=== PATIENT | female | born 1995 | race Caucasian/White ===

== ENCOUNTER 2019-12-20 20:28 | Emergency (ER) | payer SELFPAY ==
[2019-12-20 20:58] VITALS: BP 131/91; PULSE 97; RESP 14; TEMP 36.7; O2SAT 98; BMI 28.3
[2019-12-20 21:01] LABS: Basophils # 0.1 10^3/uL (0.0-0.1); Basophils % 0.6 %; Eosinophils # 0.2 10^3/uL (0.0-0.8); Eosinophils % 1.4 %; Hematocrit 42.9 % (37.0-47.0); Lymphocytes % 38.4 %; Mean Corpuscular HGB Conc 32.6 g/dL (30.0-36.0); Mean Corpuscular Hemoglobin 32.4 pg (28.0-34.0); Mean Corpuscular Volume 99.3 fL (81-99); Mean Platelet Volume 10.9 fL (7.4-10.4); Monocytes # 0.5 10^3/uL (0.2-0.9); Monocytes % 4.9 %; Neutrophils # 5.65 10^3/uL (1.8-7.7); Neutrophils % 54.5 %; Nucleated Red Blood Cells % 0 %; Platelet Count 239 10^3/cmm (130-400); Red Blood Count 4.32 10^6/uL (4.1-5.3); Red Cell Distribution Width 12.2 % (12.1-15.1); White Blood Count 10.4 10^3/uL (4.0-10.0)
[2019-12-20 21:23] LABS: Alanine Aminotransferase 20 U/L (0-33); Albumin Level 4.5 g/dL (3.5-5.2); Alkaline Phosphatase 67 IU/L (35-105); Anion Gap 13.7 (5-19); Aspartate Amino Transferase 18 U/L (0-32); Blood Urea Nitrogen 10 mg/dL (6-20); Calcium 8.9 mg/dL (8.5-10.5); Carbon Dioxide 23 mmol/L (22-29); Chloride 105 mmol/L (98-107); Globulin 2.4 g/dL (1.3-4.6); Glomerular Filtration Rate 123.9 mL/min (90-130); Glucose 121 mg/dL (65-115); Lipase 29 U/L (13-60); Osmolality Calculated 283 mOsm/kg (285-295); Potassium 3.7 mmol/L (3.5-5.1); Sodium 138 mmol/L (136-145); Total Bilirubin 0.2 mg/dL (0.15-1.2); Total Protein 6.9 g/dL (6.6-8.7)
[2019-12-20 21:29] LABS: HCG, Serum Qual Negative (Negative)
== END 2019-12-21 01:31 ==
PROVIDERS: Emergency Medicine; Emergency Provider Physician Assistant
DX: Z53.21 Procedure and treatment not carried out due to patient leaving prior to being seen by health care provider (principal)
CPT/HCPCS: 36415; 80053; 83690; 84703; 85025; 99281

== ENCOUNTER 2020-04-12 08:08 | Emergency (ER) | payer OTHER, SELFPAY ==
[2020-04-12 08:18] VITALS: BP 128/76; PULSE 77; RESP 18; TEMP 36.6; O2SAT 99; BMI 29.2
--- NOTE | 2020-04-12 08:35 | W.ED.COVID ---
HPI - COVID General: Chief Complaint: COVID symptoms Stated Complaint: SORE THROAT, MUSCLE ACHES, N/V/D Time Seen by Provider: 04/12/20 08:16 Triage information: Has fever, cough or shortness of breath. Exposure to COVID + person last 14 days History of Present Illness: HPI Narrative: Patient is a 25-year-old female comes to the ED with sore throat, muscle aches nausea vomiting diarrhea. Patient says symptoms started yesterday. 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 She also endorses symptoms of nasal congestion, decreased appetite and cough. She describes the cough as dry and nonproductive. Denies any fever, shortness of breath, dysuria or hematuria. COVID 19 common symptoms: positive non-productive cough, body aches, throat pain and nasal congestion; negative fever(s), chills, productive cough, dyspnea, fatigue, headache(s), nausea, vomiting or diarrhea COVID 19 other sytmptoms: negative chest pain COVID Results: SARS-CoV-2 RNA (RT-PCR) Pending 04/12/20 09:23 04/12/20 Review of Systems Const: Reports: body aches and change in appetite (decrease); Denies: fever(s), chills or fatigue Eyes: Denies: change in vision or eye discomfort ENMT: Reports: throat pain, nasal discharge and nasal congestion; Denies: odynophagia Card: Denies: chest pain, palpitations, edema, swelling of feet/ankles, dyspnea on exertion or orthopnea Resp: Reports: non-productive cough; Denies: dyspnea or productive cough GI: Denies: abdominal pain, nausea, vomiting, diarrhea, constipation or hematochezia : Denies: flank pain, dysuria or hematuria Musc: Denies: neck pain, back pain or extremity swelling Skin/Breast: Denies: rash or new lesions Neuro: Denies: headache(s), numbness in extremities or weakness in extremities [facility] ED PFSH: Medical History section wound seroma, Social History Smoking and tobacco status: current every day smoker cigarettes Years cigarettes smoked: 10 Quit status (tobacco): not considering quitting Second hand smoke exposure: Yes Smoking risk assessment/counseling performed?: No Reason smoking risk assessment not done: other Physical Exam Const: COMMON NORMALS: no acute distress, patient oriented x3 and alert GENERAL APPEARANCE: cooperative and comfortable HENMT: COMMON NORMALS: normocephalic HEAD & SCALP: normocephalic MOUTH: Normal oral and palatal mucosa present THROAT: posterior oropharynx normal, uvula midline and abnormal tonsil bilateral hypertrophy 2+; no erythema and no exudates Eye: COMMON NORMALS: Equal, round and reactive pupils present PUPIL: Yes Equal, round and reactive pupils present Neck/C-Spine: COMMON NORMALS: supple GENERAL: Yes normal visual inspection Lymph: LYMPHATIC: no lymphadenopathy noted (no cervical lymphadenopathy noted.) Resp: COMMON NORMALS: normal respiratory effort, No retractions, No use of accessory muscles and clear to auscultation bilaterally EFFORT & INSPECTION: Yes able to speak in complete sentences, No tachypneic and No respiratory distress AUSCULTATION: clear to auscultation bilaterally, no crackles and no wheezes Cardio: COMMON NORMALS: regular rate, regular rhythm, S1 normal heart sound present, S2 normal heart sound present, No gallops present (Cardio), No clicks present (Cardio), No murmurs present (Cardio) and Peripheral pulses 2+ throughout RATE: regular rate RHYTHM: regular rhythm HEART SOUNDS: S1 normal heart sound present and S2 normal heart sound present PERIPHERAL PULSES: Peripheral pulses 2+ throughout GI: COMMON NORMALS: Normal to inspection, nondistended, normoactive bowel sounds present, Soft to palpation, non-tender and no masses PALPATION: Yes Soft to palpation : COMMON NORMALS: Yes no CVA tenderness BLADDER/KIDNEY EXAM: Yes no CVA tenderness Back/Pelvis: COMMON NORMALS: no CVA tenderness Extremity: COMMON NORMALS: normal to inspection and no pedal edema Neuro: COMMON NORMALS: patient oriented x3 and moves all extremities SENSORIUM/ORIENTATION: Yes alert Skin: GENERAL SKIN EXAM: dry skin Course Vital Signs: Vital signs: Vital Signs Temperature 97.9 F 04/12/20 08:18 Pulse Rate 77 04/12/20 08:18 Respiratory Rate 18 04/12/20 08:18 Blood Pressure 128/76 04/12/20 08:18 Pulse Oximetry 97 04/12/20 09:45 MDM - COVID MDM Narrative Medical decision making narrative: Patient is a 25-year-old female comes to the ED with upper respiratory symptoms, eam, nausea vomiting and diarrhea. 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 Physical exam shows a healthy 25-year-old female in no acute distress. Lungs are clear to all station bilaterally, with no signs of respiratory distress. CBC, CMP and UA were all unremarkable. Chest x-ray showed no acute findings. Influenza and strep were both negative. COVID-19 test pending. hCG negative vitals blood pressure 128/76, pulse 77, respirations 18, temp 97.9, O2 sat 97% on room air. Patient is stable for discharge and told to self quarantine until COVID-19 test results are back. Patient was told results should be back within the next 2 to 3 days and I told her the hospital will call her with results or she can call hospital. She was discharged with some Zofran and given return to ED precautions. Patient understood agree with plan. Lab Data Attestation: I reviewed the patient's lab results. Result diagrams: 04/12/20 09:00 04/12/20 09:00 Labs: Lab Results 04/12/20 04/12/20 04/12/20 Range/Units 09:00 09:00 09:00 WBC 7.5 (4.0-10.0) 10^3/uL RBC 4.12 (4.1-5.3) 10^6/uL Hgb 13.5 (11.5-15.3) g/dL Hct 40.4 (37.0-47.0) % MCV 98.1 (81-99) fL MCH 32.8 (28.0-34.0) pg MCHC 33.4 (30.0-36.0) g/dL RDW 12.2 (12.1-15.1) % Plt Count 196 (130-400) 10^3/cmm MPV 11.3 H (7.4-10.4) fL Neut % (Auto) 57.4 % Lymph % (Auto) 35.4 % Reynolds % (Auto) 5.5 % Eos % (Auto) 1.1 % Baso % (Auto) 0.5 % Neut # (Auto) 4.27 (1.8-7.7) 10^3/uL Lymph # (Auto) 2.6 (0.8-4.8) 10^3/uL Reynolds # (Auto) 0.4 (0.2-0.9) 10^3/uL Eos # (Auto) 0.1 (0.0-0.8) 10^3/uL Baso # (Auto) 0.0 (0.0-0.1) 10^3/uL Nucleated RBC % (auto) 0 % Nucleated RBCs # 0.0 /100WBC Sodium 138 (136-145) mmol/L Potassium 4.0 (3.5-5.1) mmol/L Chloride 106 (98-107) mmol/L Carbon Dioxide 24 (22-29) mmol/L Anion Gap 12.0 (5-19) BUN 8 (6-20) mg/dL Creatinine 0.6 (0.5-0.9) mg/dL GFR Calculation 122.8 (90-130) mL/min Glucose 91 (65-115) mg/dL Calculated Osmolality 284 L (285-295) mOsm/kg Calcium 8.4 L (8.5-10.5) mg/dL Total Bilirubin 0.3 (0.15-1.2) mg/dL AST 12 (0-32) U/L ALT 11 (0-33) U/L Alkaline Phosphatase 59 (35-105) IU/L Total Protein 6.5 L (6.6-8.7) g/dL Albumin 3.9 (3.5-5.2) g/dL Globulin 2.6 (1.3-4.6) g/dL HCG, Qual Negative (Negative) Urine Color (Yellow) Urine Appearance (CLEAR) Urine pH (5-7) Ur Specific [place] (1.005-1.030) Urine Protein (Negative) Urine Glucose (UA) (Normal) Urine Ketones (Negative) Urine Blood (Negative) Urine Nitrate (Negative) Urine Bilirubin (Negative) Urine Urobilinogen (Negative) mg/dL Ur Leukocyte Esterase (Negative) Urine RBC (0-2) /hpf Urine WBC (0-5) /hpf Ur Squamous Epith Cells (0-5) /hpf Amorphous Sediment Urine Bacteria (NONE) /hpf Influenza Type A Ag (Negative) Influenza Type B Ag (Negative) Group A Strep Rapid (Negative) 04/12/20 04/12/20 04/12/20 Range/Units 09:20 09:22 09:25 WBC (4.0-10.0) 10^3/uL RBC (4.1-5.3) 10^6/uL Hgb (11.5-15.3) g/dL Hct (37.0-47.0) % MCV (81-99) fL MCH (28.0-34.0) pg MCHC (30.0-36.0) g/dL RDW (12.1-15.1) % Plt Count (130-400) 10^3/cmm MPV (7.4-10.4) fL Neut % (Auto) % Lymph % (Auto) % Reynolds % (Auto) % Eos % (Auto) % Baso % (Auto) % Neut # (Auto) (1.8-7.7) 10^3/uL Lymph # (Auto) (0.8-4.8) 10^3/uL Reynolds # (Auto) (0.2-0.9) 10^3/uL Eos # (Auto) (0.0-0.8) 10^3/uL Baso # (Auto) (0.0-0.1) 10^3/uL Nucleated RBC % (auto) % Nucleated RBCs # /100WBC Sodium (136-145) mmol/L Potassium (3.5-5.1) mmol/L Chloride (98-107) mmol/L Carbon Dioxide (22-29) mmol/L Anion Gap (5-19) BUN (6-20) mg/dL Creatinine (0.5-0.9) mg/dL GFR Calculation (90-130) mL/min Glucose (65-115) mg/dL Calculated Osmolality (285-295) mOsm/kg Calcium (8.5-10.5) mg/dL Total Bilirubin (0.15-1.2) mg/dL AST (0-32) U/L ALT (0-33) U/L Alkaline Phosphatase (35-105) IU/L Total Protein (6.6-8.7) g/dL Albumin (3.5-5.2) g/dL Globulin (1.3-4.6) g/dL HCG, Qual (Negative) Urine Color Yellow (Yellow) Urine Appearance Clear (CLEAR) Urine pH 7.0 (5-7) Ur Specific [place] 1.005 (1.005-1.030) Urine Protein Neg (Negative) Urine Glucose (UA) Norm (Normal) Urine Ketones Negative (Negative) Urine Blood Trace H (Negative) Urine Nitrate Negative (Negative) Urine Bilirubin Neg (Negative) Urine Urobilinogen Norm (Negative) mg/dL Ur Leukocyte Esterase Negative (Negative) Urine RBC Rare (0-2) /hpf Urine WBC None (0-5) /hpf Ur Squamous Epith Cells 0-4 H (0-5) /hpf Amorphous Sediment Not Reportable Urine Bacteria Trace (NONE) /hpf Influenza Type A Ag Negative (Negative) Influenza Type B Ag Negative (Negative) Group A Strep Rapid Negative (Negative) COVID Results: SARS-CoV-2 RNA (RT-PCR) Pending 04/12/20 09:23 04/12/20 Imaging Data CXR: Attestation: I personally reviewed and interpreted this imaging study as follows: Radiologist's impression: [address] [address] XRay Report Signed Patient: Sigrid Farah Unit #: [id number] : 1995 Age/Sex: 25 / F ADM Date: 04/12/20 Loc: ER Room/Bed: Attending Dr: Ordering Provider/Ordering MD: Parveen Corley Date of Service: 04/12/20 Procedure(s): XR chest 1V portable [id number] Accession Number(s): [id number] Report Number: [id number] WS: [id number] CHEST XRAY TECHNIQUE: Portable chest. CLINICAL INFORMATION: cough COMPARISON: FINDINGS: Heart: Normal cardiac silhouette. Lungs: Hyperinflation. No acute pulmonary infiltrates. No focal pneumonia or pleural fluid. Bones: Normal visualized bony structures. XR/XR chest 1V portable [id number] IMPRESSION: Normal chest Dictated By: Isiah Wolfe MD Signed By: Isiah Wolfe MD Signed Date/Time: 04/12/20926 DD/ 5 Discharge Plan Discharge Patient Disposition: Home Clinical Impression: Viral syndrome, Close exposure to severe acute respiratory syndrome coronavirus 2 (SARS-CoV-2) Condition: Stable Prescriptions: New Zofran 4 mg tablet 4 mg PO Q8H Qty: 20 RF: 0 No Action prazosin 2 mg capsule 2 mg PO .HS Qty: 30 RF: 1 lamotrigine 25 mg (84) -100 mg (14) tablets,dose pack See Rx Instructions PO PER PKG DIR Qty: 98 RF: 0 Discharge Orders: Discharge Order (Routine); Ordered 04/12/20 Ordered By: Parveen Corley Discharge Diet: Advance as tolerated Discharge Activity: Increase activity as tolerated Patient Instructions: Viral Syndrome (ED) Activity Restrictions/Additional Instructions: Follow-up with medical provider as directed in 7-10 days. COVID testing was performed and sent to lab and results will be back in 2 to 3 days. Self quarantine for the next 3 days or up to 12 days pending on COVID testing results. Contact [facility] in 2 to 3 days to get results or [facility] will contact you with results. Take ibuprofen or Tylenol for fevers. Drink plenty of fluids and stay hydrated. Symptom management with [id number] cough and nasal decongestant meds. Return to the ER or your medical provider if condition worsens. Please read and understand discharge instructions. If any questions, please ask. 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
--- NOTE | 2020-04-12 08:56 | XR_ITS ---
WS: [id number] CHEST XRAY TECHNIQUE: Portable chest. CLINICAL INFORMATION: cough COMPARISON: FINDINGS: Heart: Normal cardiac silhouette. Lungs: Hyperinflation. No acute pulmonary infiltrates. No focal pneumonia or pleural fluid. Bones: Normal visualized bony structures. XR/XR chest 1V portable [id number] IMPRESSION: Normal chest
[2020-04-12] MEDS: sodium chloride 0.9% 1,000 ML 999 ML IV (08:58)
[2020-04-12] MEDS: ondansetron 2 mg/ML SDV 2 mL 4 MG IVP (08:58)
[2020-04-12 09:33] LABS: Basophils % 0.5 %; Eosinophils # 0.1 10^3/uL (0.0-0.8); Eosinophils % 1.1 %; Hematocrit 40.4 % (37.0-47.0); Hemoglobin 13.5 g/dL (11.5-15.3); Lymphocytes # 2.6 10^3/uL (0.8-4.8); Lymphocytes % 35.4 %; Mean Corpuscular HGB Conc 33.4 g/dL (30.0-36.0); Mean Corpuscular Hemoglobin 32.8 pg (28.0-34.0); Mean Corpuscular Volume 98.1 fL (81-99); Mean Platelet Volume 11.3 fL (7.4-10.4); Monocytes # 0.4 10^3/uL (0.2-0.9); Monocytes % 5.5 %; Neutrophils # 4.27 10^3/uL (1.8-7.7); Neutrophils % 57.4 %; Nucleated Red Blood Cells % 0 %; Platelet Count 196 10^3/cmm (130-400); Red Blood Count 4.12 10^6/uL (4.1-5.3); Red Cell Distribution Width 12.2 % (12.1-15.1); White Blood Count 7.5 10^3/uL (4.0-10.0)
[2020-04-12 09:45] VITALS: O2SAT 97
[2020-04-12 09:50] LABS: Rapid Strep A Test Negative (Negative)
[2020-04-12 09:53] LABS: Alanine Aminotransferase 11 U/L (0-33); Albumin Level 3.9 g/dL (3.5-5.2); Alkaline Phosphatase 59 IU/L (35-105); Aspartate Amino Transferase 12 U/L (0-32); Blood Urea Nitrogen 8 mg/dL (6-20); Calcium 8.4 mg/dL (8.5-10.5); Carbon Dioxide 24 mmol/L (22-29); Chloride 106 mmol/L (98-107); Globulin 2.6 g/dL (1.3-4.6); Glomerular Filtration Rate 122.8 mL/min (90-130); Glucose 91 mg/dL (65-115); Osmolality Calculated 284 mOsm/kg (285-295); Sodium 138 mmol/L (136-145); Total Bilirubin 0.3 mg/dL (0.15-1.2); Total Protein 6.5 g/dL (6.6-8.7)
[2020-04-12 09:53] LABS: Bilirubin Urine Neg (Negative); Blood Urine Trace (Negative); Glucose Urine UA Norm (Normal); Ketones Urine Negative (Negative); Leukocyte Esterase Urine Negative (Negative); Nitrate Urine Negative (Negative); Protein Urine Neg (Negative); Specific Gravity, Urine 1.005 (1.005-1.030); Urine Appearance Clear (CLEAR); Urine Color Yellow (Yellow); Urobilinogen Urine Norm (Negative)
[2020-04-12 10:02] LABS: HCG, Serum Qual Negative (Negative)
[2020-04-12 10:02] LABS: Influenza A by IFA Negative (Negative); Influenza B by IFA Negative (Negative)
[2020-04-12 10:16] LABS: Add Urine Culture? No; Bacteria Urine TRACE /hpf; RBC Urine RARE /hpf (0-2); Squamous Epithelial Cell Urine 0-4 /hpf (0-5)
[2020-04-12 11:54] VITALS: BP 104/63; PULSE 67; RESP 20; O2SAT 98
[2020-04-13 19:58] LABS: Quest SARS-CoV-2 RNA NOT DETECTED (NOT DETECTED)
--- NOTE | 2020-04-14 09:54 | PC.NURSE ---
Attempted to contact pt about COVID results. Voicemail left for pt to return call.
--- NOTE | 2020-04-14 10:03 | PC.NURSE ---
pt contacted and given the results of her covid test
== END 2020-04-12 11:55 | disposition home or self-care (01) ==
PROVIDERS: Emergency Provider Physician Assistant
DX: B34.9 Viral infection, unspecified (principal); Z20.828 Contact with and (suspected) exposure to other viral communicable diseases; F17.210 Nicotine dependence, cigarettes, uncomplicated
CPT/HCPCS: 12345; 71045; 80053; 81001; 84703; 85025; 87081; 87635; 87804; 87880; 96361; 96374; 96375; 99284; J2405; J7030

== ENCOUNTER 2020-12-05 01:19 | Emergency (ER) | payer SELFPAY ==
[2020-12-05 01:23] VITALS: BP 111/79; PULSE 101; RESP 18; TEMP 36.5; O2SAT 98; BMI 31.1
--- NOTE | 2020-12-05 01:34 | ED_ITS ---
Documented by User: SEA Magallanes 12/05/20 03:19 HPI - Nausea/Vomiting/Diarrhea General: Chief complaint: Nausea/Vomiting/Diarrhea Stated complaint: ab pain, stomach cramp, n/v/d Time Seen by Provider: 12/05/20 01:29 History of Present Illness: HPI Narrative: Patient is a 25-year-old female comes to the ED with abdominal pain, nausea/vomiting and diarrhea. Patient says that tonight before she went to bed she was having some abdominal pain in the upper part of her abdomen. She laid down went to bed and then woke up later tonight with nausea, vomiting and diarrhea. She says she has had multiple episodes of both vomiting and diarrhea since start of symptoms several hours ago. Patient denies any known exposures to anyone sick. She ate at [id number] for dinner tonight but other people in her family ate the same food and did not get sick. Denies any fever, chills, cough, shortness of breath, dysuria or hematuria. Patient has a history of previous but no other abdominal surgeries. Associated nausea: Yes Associated symtoms: Reports nausea; Denies change in vision, chest pain, dysuria, fatigue, headache(s) or palpitations Review of Systems Const: Denies: fever(s), chills or fatigue Eyes: Denies: change in vision or eye discomfort ENMT: Denies: throat pain, odynophagia, nasal discharge or nasal congestion Card: Denies: chest pain, palpitations, edema, swelling of feet/ankles, dyspnea on exertion or orthopnea Resp: Denies: dyspnea, productive cough or non-productive cough GI: Reports: abdominal pain, nausea, vomiting and diarrhea; Denies: constipation or hematochezia : Denies: flank pain, dysuria or hematuria Musc: Denies: neck pain, back pain or extremity swelling Skin/Breast: Denies: rash or new lesions Neuro: Denies: headache(s), numbness in extremities or weakness in extremities [facility] ED PFSH: Medical History (Updated 12/05/20 @ 04:34 by Marcel Wei MD) section wound seroma, Social History Smoking and tobacco status: current every day smoker cigarettes Years cigarettes smoked: 10 Quit status (tobacco): not considering quitting Second hand smoke exposure: Yes Smoking risk assessment/counseling performed?: No Reason smoking risk assessment not done: other Female Reproductive History: Date of last menstrual period: 10/16/20 Physical Exam Narrative: EXAM NARRATIVE: Patient is a 25-year-old female that is actively vomiting when I entered the room. She appears ill and also had to step out and go to bathroom for diarrhea. Const: COMMON NORMALS: patient oriented x3 HENMT: COMMON NORMALS: normocephalic HEAD & SCALP: normocephalic MOUTH: Normal oral and palatal mucosa present THROAT: posterior oropharynx normal and uvula midline Neck/C-Spine: COMMON NORMALS: supple GENERAL: Yes normal visual inspection Resp: COMMON NORMALS: normal respiratory effort, No retractions, No use of accessory muscles and clear to auscultation bilaterally AUSCULTATION: clear to auscultation bilaterally Cardio: COMMON NORMALS: regular rate, regular rhythm, S1 normal heart sound present, S2 normal heart sound present, No gallops present (Cardio), No clicks present (Cardio), No murmurs present (Cardio) and Peripheral pulses 2+ throughout RATE: regular rate RHYTHM: regular rhythm HEART SOUNDS: S1 normal heart sound present and S2 normal heart sound present PERIPHERAL PULSES: Peripheral pulses 2+ throughout GI: COMMON NORMALS: Normal to inspection, nondistended, normoactive bowel sounds present, Soft to palpation and no masses PALPATION: Yes Soft to palpation and Yes Tenderness to palpation present (GI) Details: LUQ : COMMON NORMALS: Yes no CVA tenderness BLADDER/KIDNEY EXAM: Yes no CVA tenderness Back/Pelvis: COMMON NORMALS: no CVA tenderness Extremity: COMMON NORMALS: normal to inspection Neuro: COMMON NORMALS: patient oriented x3 and moves all extremities Skin: GENERAL SKIN EXAM: dry skin Course ED course: Patient care was transferred over to Dr. Wei at 3:[address] Wei about patient case and that I am waiting on CT image findings before discharge. Vital Signs: Vital signs: Vital Signs Temperature 97.7 F 12/05/20 01:23 Pulse Rate 72 12/05/20 03:52 Respiratory Rate 16 12/05/20 03:52 Blood Pressure 142/72 12/05/20 03:52 Pulse Oximetry 99 12/05/20 03:52 MDM - Nausea/Vomiting/Diarrhea Lab Data: Attestation: I reviewed the patient's lab results. Labs: Lab Results 12/05/20 12/05/20 12/05/20 Range/Units 01:55 01:55 01:55 WBC 15.2 H (4.0-10.0) 10^3/ uL RBC 4.86 (4.1-5.3) 10^6/u L Hgb 15.8 H (11.5-15.3) g/dL Hct 47.2 H (37.0-47.0) % MCV 97.1 (81-99) fL MCH 32.5 (28.0-34.0) pg MCHC 33.5 (30.0-36.0) g/dL RDW 12.3 (12.1-15.1) % Plt Count 240 (130-400) 10^3/c mm MPV 11.3 H (7.4-10.4) fL Neut % (Auto) 78.0 % Lymph % (Auto) 14.7 % [place] % (Auto) 5.7 % Eos % (Auto) 0.9 % Baso % (Auto) 0.3 % Neut # (Auto) 11.82 H (1.8-7.7) 10^3/u L Lymph # (Auto) 2.2 (0.8-4.8) 10^3/u L [place] # (Auto) 0.9 (0.2-0.9) 10^3/u L Eos # (Auto) 0.1 (0.0-0.8) 10^3/u L Baso # (Auto) 0.1 (0.0-0.1) 10^3/u L Nucleated RBC % (a uto) 0 % Nucleated RBCs # 0.0 /100WBC Sodium 141 (136-145) mmol/L Potassium 3.7 (3.5-5.1) mmol/L Chloride 106 (98-107) mmol/L Carbon Dioxide 21 L (22-29) mmol/L Anion Gap 17.7 (5-19) BUN 12 (6-20) mg/dL Creatinine 0.7 (0.5-0.9) mg/dL GFR Calculation 102.8 (90-130) mL/min Glucose 106 (65-115) mg/dL Calculated Osmolal ity 292 (285-295) mOsm/k g Calcium 8.8 (8.5-10.5) mg/dL Total Bilirubin 0.4 (0.15-1.2) mg/dL AST 17 (0-32) U/L ALT 15 (0-33) U/L Alkaline Phosphata se 72 (35-105) IU/L Total Protein 7.4 (6.6-8.7) g/dL Albumin 4.5 (3.5-5.2) g/dL Globulin 2.9 (1.3-4.6) g/dL Lipase 30 (13-60) U/L HCG, Qual Negative (Negative) Urine Color (Yellow) Urine Appearance (CLEAR) Urine pH (5-7) Ur Specific Gravit y (1.005-1.030) Urine Protein (Negative) Urine Glucose (UA) (Normal) Urine Ketones (Negative) Urine Blood (Negative) Urine Nitrate (Negative) Urine Bilirubin (Negative) Urine Urobilinogen (Negative) mg/dL Ur Leukocyte Maribell ase (Negative) Urine RBC (0-2) /hpf Urine WBC (0-5) /hpf Ur Squamous Epith Cells (0-5) /hpf Amorphous Sediment Urine Bacteria (NONE) /hpf Urine Mucus /hpf 12/05/20 Range/Units 03:57 WBC (4.0-10.0) 10^3/ uL RBC (4.1-5.3) 10^6/u L Hgb (11.5-15.3) g/dL Hct (37.0-47.0) % MCV (81-99) fL MCH (28.0-34.0) pg MCHC (30.0-36.0) g/dL RDW (12.1-15.1) % Plt Count (130-400) 10^3/c mm MPV (7.4-10.4) fL Neut % (Auto) % Lymph % (Auto) % [place] % (Auto) % Eos % (Auto) % Baso % (Auto) % Neut # (Auto) (1.8-7.7) 10^3/u L Lymph # (Auto) (0.8-4.8) 10^3/u L [place] # (Auto) (0.2-0.9) 10^3/u L Eos # (Auto) (0.0-0.8) 10^3/u L Baso # (Auto) (0.0-0.1) 10^3/u L Nucleated RBC % (a uto) % Nucleated RBCs # /100WBC Sodium (136-145) mmol/L Potassium (3.5-5.1) mmol/L Chloride (98-107) mmol/L Carbon Dioxide (22-29) mmol/L Anion Gap (5-19) BUN (6-20) mg/dL Creatinine (0.5-0.9) mg/dL GFR Calculation (90-130) mL/min Glucose (65-115) mg/dL Calculated Osmolal ity (285-295) mOsm/k g Calcium (8.5-10.5) mg/dL Total Bilirubin (0.15-1.2) mg/dL AST (0-32) U/L ALT (0-33) U/L Alkaline Phosphata se (35-105) IU/L Total Protein (6.6-8.7) g/dL Albumin (3.5-5.2) g/dL Globulin (1.3-4.6) g/dL Lipase (13-60) U/L HCG, Qual (Negative) Urine Color Yellow (Yellow) Urine Appearance Clear (CLEAR) Urine pH 6.5 (5-7) Ur Specific Gravit y 1.005 (1.005-1.030) Urine Protein 1+ H (Negative) Urine Glucose (UA) Norm (Normal) Urine Ketones Negative (Negative) Urine Blood Neg (Negative) Urine Nitrate Negative (Negative) Urine Bilirubin Neg (Negative) Urine Urobilinogen Norm (Negative) mg/dL Ur Leukocyte Maribell ase Negative (Negative) Urine RBC 0-4 H (0-2) /hpf Urine WBC 0-4 H (0-5) /hpf Ur Squamous Epith Cells 0-4 H (0-5) /hpf Amorphous Sediment Not Reportable Urine Bacteria Trace (NONE) /hpf Urine Mucus 1+ /hpf Discharge Plan Discharge Patient Disposition: Home Clinical Impression: Vomiting, Jejunitis Condition: Stable Prescriptions: New ondansetron 4 mg tablet,disintegrating 4 mg PO Q6H PRN (Reason: nausea and vomiting) Qty: 14 RF: 0 No Action clindamycin HCl 300 mg capsule 300 mg PO TID 10 Days Qty: 30 RF: 0 Discharge Orders: Discharge ED (Routine); Ordered 12/05/20 Ordered By: Marcel Wei Referrals: Noah Kingston MD [Physician] - 1-3 days Discharge Diet: Advance as tolerated Discharge Activity: Resume usual activity Patient Instructions: Acute Nausea and Vomiting (ED) Coding Level of Care Code ED Integrated Program Teacher for Chg Fwd Exam Comprehensive Documented by User: Marcel Wei MD 12/05/20 04:47 HPI - Nausea/Vomiting/Diarrhea General: Chief complaint: Nausea/Vomiting/Diarrhea Stated complaint: ab pain, stomach cramp, n/v/d Time Seen by Provider: 12/05/20 01:29 [facility] ED PFSH: Medical History (Updated 12/05/20 @ 04:34 by Marcel Wei MD) section wound seroma, Social History Smoking and tobacco status: current every day smoker cigarettes Years cigarettes smoked: 10 Quit status (tobacco): not considering quitting Second hand smoke exposure: Yes Smoking risk assessment/counseling performed?: No Reason smoking risk assessment not done: other Course Vital Signs: Vital signs: Vital Signs Temperature 97.7 F 12/05/20 01:23 Pulse Rate 72 12/05/20 03:52 Respiratory Rate 16 12/05/20 03:52 Blood Pressure 142/72 12/05/20 03:52 Pulse Oximetry 99 12/05/20 03:52 MDM - Nausea/Vomiting/Diarrhea MDM Narrative: Medical decision making narrative: Patient presents here with vomiting and feels much improved here after Zofran. CT scan showed a possible jejunitis. She is well-appearing here and is stable for discharge. We will have her follow-up with surgery and return if worsening. She understands agrees to plan. Lab Data: Labs: Lab Results 12/05/20 12/05/20 12/05/20 Range/Units 01:55 01:55 01:55 WBC 15.2 H (4.0-10.0) 10^3/ uL RBC 4.86 (4.1-5.3) 10^6/u L Hgb 15.8 H (11.5-15.3) g/dL Hct 47.2 H (37.0-47.0) % MCV 97.1 (81-99) fL MCH 32.5 (28.0-34.0) pg MCHC 33.5 (30.0-36.0) g/dL RDW 12.3 (12.1-15.1) % Plt Count 240 (130-400) 10^3/c mm MPV 11.3 H (7.4-10.4) fL Neut % (Auto) 78.0 % Lymph % (Auto) 14.7 % [place] % (Auto) 5.7 % Eos % (Auto) 0.9 % Baso % (Auto) 0.3 % Neut # (Auto) 11.82 H (1.8-7.7) 10^3/u L Lymph # (Auto) 2.2 (0.8-4.8) 10^3/u L [place] # (Auto) 0.9 (0.2-0.9) 10^3/u L Eos # (Auto) 0.1 (0.0-0.8) 10^3/u L Baso # (Auto) 0.1 (0.0-0.1) 10^3/u L Nucleated RBC % (a uto) 0 % Nucleated RBCs # 0.0 /100WBC Sodium 141 (136-145) mmol/L Potassium 3.7 (3.5-5.1) mmol/L Chloride 106 (98-107) mmol/L Carbon Dioxide 21 L (22-29) mmol/L Anion Gap 17.7 (5-19) BUN 12 (6-20) mg/dL Creatinine 0.7 (0.5-0.9) mg/dL GFR Calculation 102.8 (90-130) mL/min Glucose 106 (65-115) mg/dL Calculated Osmolal ity 292 (285-295) mOsm/k g Calcium 8.8 (8.5-10.5) mg/dL Total Bilirubin 0.4 (0.15-1.2) mg/dL AST 17 (0-32) U/L ALT 15 (0-33) U/L Alkaline Phosphata se 72 (35-105) IU/L Total Protein 7.4 (6.6-8.7) g/dL Albumin 4.5 (3.5-5.2) g/dL Globulin 2.9 (1.3-4.6) g/dL Lipase 30 (13-60) U/L HCG, Qual Negative (Negative) Urine Color (Yellow) Urine Appearance (CLEAR) Urine pH (5-7) Ur Specific Gravit y (1.005-1.030) Urine Protein (Negative) Urine Glucose (UA) (Normal) Urine Ketones (Negative) Urine Blood (Negative) Urine Nitrate (Negative) Urine Bilirubin (Negative) Urine Urobilinogen (Negative) mg/dL Ur Leukocyte Maribell ase (Negative) Urine RBC (0-2) /hpf Urine WBC (0-5) /hpf Ur Squamous Epith Cells (0-5) /hpf Amorphous Sediment Urine Bacteria (NONE) /hpf Urine Mucus /hpf // Range/Units 03:57 WBC (4.0-10.0) 10^3/ uL RBC (4.1-5.3) 10^6/u L Hgb (11.5-15.3) g/dL Hct (37.0-47.0) % MCV (81-99) fL MCH (28.0-34.0) pg MCHC (30.0-36.0) g/dL RDW (12.1-15.1) % Plt Count (130-400) 10^3/c mm MPV (7.4-10.4) fL Neut % (Auto) % Lymph % (Auto) % [place] % (Auto) % Eos % (Auto) % Baso % (Auto) % Neut # (Auto) (1.8-7.7) 10^3/u L Lymph # (Auto) (0.8-4.8) 10^3/u L [place] # (Auto) (0.2-0.9) 10^3/u L Eos # (Auto) (0.0-0.8) 10^3/u L Baso # (Auto) (0.0-0.1) 10^3/u L Nucleated RBC % (a uto) % Nucleated RBCs # /100WBC Sodium (136-145) mmol/L Potassium (3.5-5.1) mmol/L Chloride (98-107) mmol/L Carbon Dioxide (22-29) mmol/L Anion Gap (5-19) BUN (6-20) mg/dL Creatinine (0.5-0.9) mg/dL GFR Calculation (90-130) mL/min Glucose (65-115) mg/dL Calculated Osmolal ity (285-295) mOsm/k g Calcium (8.5-10.5) mg/dL Total Bilirubin (0.15-1.2) mg/dL AST (0-32) U/L ALT (0-33) U/L Alkaline Phosphata se (35-105) IU/L Total Protein (6.6-8.7) g/dL Albumin (3.5-5.2) g/dL Globulin (1.3-4.6) g/dL Lipase (13-60) U/L HCG, Qual (Negative) Urine Color Yellow (Yellow) Urine Appearance Clear (CLEAR) Urine pH 6.5 (5-7) Ur Specific Gravit y 1.005 (1.005-1.030) Urine Protein 1+ H (Negative) Urine Glucose (UA) Norm (Normal) Urine Ketones Negative (Negative) Urine Blood Neg (Negative) Urine Nitrate Negative (Negative) Urine Bilirubin Neg (Negative) Urine Urobilinogen Norm (Negative) mg/dL Ur Leukocyte Maribell ase Negative (Negative) Urine RBC 0-4 H (0-2) /hpf Urine WBC 0-4 H (0-5) /hpf Ur Squamous Epith Cells 0-4 H (0-5) /hpf Amorphous Sediment Not Reportable Urine Bacteria Trace (NONE) /hpf Urine Mucus 1+ /hpf Imaging Data^: CT Abd/Pel: Radiologist's impression: [address] [id number] [address] Scan Report Signed Patient: Sigrid Farah Unit #: [id number] : 1995 Age/Sex: 25 / F ADM Date: 1 Loc: ER Room/Bed: Attending Dr: Ordering Provider/Ordering MD: Parveen Corley Date of Service: 12/05/20 Procedure(s): CT abdomen pelvis w con* [id number] Accession Number(s): [id number] Report Number: [id number] PROCEDURE INFORMATION: Exam: CT Abdomen And Pelvis With Contrast Exam date and time: 12/05/2020 1:41 AM Age: 25 years old Clinical indication: Nausea and vomiting; Abdominal pain; Localized; Right upper quadrant (ruq); Additional info: Upper abdominal pain with n/v/d TECHNIQUE: Imaging protocol: Computed tomography of the abdomen and pelvis with contrast. Radiation optimization: All CT scans at this facility use at least one of these dose optimization techniques: automated exposure control; mA and/or kV adjustment per patient size (includes targeted exams where dose is matched to clinical indication); or iterative reconstruction. Contrast material: OMNI 300; Contrast volume: 95 ml; Contrast route: INTRAVENOUS (IV); COMPARISON: [facility] [id number] 04/15/2018 1:33 PM RADIATION DOSE METRICS: Total DLP (mGy-cm): 1481.27 FINDINGS: Liver: Normal. No mass. Gallbladder and bile ducts: Normal. No calcified stones. No ductal dilation. Pancreas: Normal. No ductal dilation. Spleen: Normal. No splenomegaly. Adrenal glands: Normal. No mass. Kidneys and ureters: Normal. No hydronephrosis. Stomach and bowel: Jejunal bowel wall thickening consistent with jejunitis. Appendix: Normal appendix. Intraperitoneal space: Unremarkable. No free air. No significant fluid collection. Vasculature: Unremarkable. No abdominal aortic aneurysm. Lymph nodes: Unremarkable. No enlarged lymph nodes. Urinary bladder: Unremarkable as visualized. Reproductive: Unremarkable as visualized. Bones/joints: Unremarkable. No acute fracture. Soft tissues: Unremarkable. CT/CT abdomen pelvis w con* [id number] IMPRESSION: Jejunal bowel wall thickening consistent with jejunitis. Discharge Plan Discharge Patient Disposition: Home Clinical Impression: Vomiting, Jejunitis Condition: Stable Prescriptions: New ondansetron 4 mg tablet,disintegrating 4 mg PO Q6H PRN (Reason: nausea and vomiting) Qty: 14 RF: 0 No Action clindamycin HCl 300 mg capsule 300 mg PO TID 10 Days Qty: 30 RF: 0 Discharge Orders: Discharge ED (Routine); Ordered 12/05/20 Ordered By: Marcel Wei Referrals: Noah Kingston MD [Physician] - 1-3 days Discharge Diet: Advance as tolerated Discharge Activity: Resume usual activity Patient Instructions: Acute Nausea and Vomiting (ED) Coding Level of Care Code ED Integrated Program Teacher for Kinjal Fwd Exam Comprehensive
--- NOTE | 2020-12-05 01:41 | CTR_ITS ---
PROCEDURE INFORMATION: Exam: CT Abdomen And Pelvis With Contrast Exam date and time: 12/05/2020 1:41 AM Age: 25 years old Clinical indication: Nausea and vomiting; Abdominal pain; Localized; Right upper quadrant (ruq); Additional info: Upper abdominal pain with n/v/d TECHNIQUE: Imaging protocol: Computed tomography of the abdomen and pelvis with contrast. Radiation optimization: All CT scans at this facility use at least one of these dose optimization techniques: automated exposure control; mA and/or kV adjustment per patient size (includes targeted exams where dose is matched to clinical indication); or iterative reconstruction. Contrast material: OMNI 300; Contrast volume: 95 ml; Contrast route: INTRAVENOUS (IV); COMPARISON: [facility] [id number] 04/15/2018 1:33 PM RADIATION DOSE METRICS: Total DLP (mGy-cm): 1481.27 FINDINGS: Liver: Normal. No mass. Gallbladder and bile ducts: Normal. No calcified stones. No ductal dilation. Pancreas: Normal. No ductal dilation. Spleen: Normal. No splenomegaly. Adrenal glands: Normal. No mass. Kidneys and ureters: Normal. No hydronephrosis. Stomach and bowel: Jejunal bowel wall thickening consistent with jejunitis. Appendix: Normal appendix. Intraperitoneal space: Unremarkable. No free air. No significant fluid collection. Vasculature: Unremarkable. No abdominal aortic aneurysm. Lymph nodes: Unremarkable. No enlarged lymph nodes. Urinary bladder: Unremarkable as visualized. Reproductive: Unremarkable as visualized. Bones/joints: Unremarkable. No acute fracture. Soft tissues: Unremarkable. CT/CT abdomen pelvis w con* [id number] IMPRESSION: Jejunal bowel wall thickening consistent with jejunitis. Radiation Dose CTDIVOL = (mGy): DLP = 1481.27 (mGy-cm)
[2020-12-05] MEDS: sodium chloride 0.9% 1,000 ML 999 ML IV (02:02)
[2020-12-05] MEDS: metoclopramide 5 mg/mL SDV 2 mL 10 MG IVP (02:03)
[2020-12-05 02:05] VITALS: BP 126/86; PULSE 89; RESP 16; O2SAT 98
[2020-12-05 02:10] LABS: Basophils # 0.1 10^3/uL (0.0-0.1); Basophils % 0.3 %; Eosinophils # 0.1 10^3/uL (0.0-0.8); Eosinophils % 0.9 %; Hematocrit 47.2 % (37.0-47.0); Hemoglobin 15.8 g/dL (11.5-15.3); Lymphocytes # 2.2 10^3/uL (0.8-4.8); Lymphocytes % 14.7 %; Mean Corpuscular HGB Conc 33.5 g/dL (30.0-36.0); Mean Corpuscular Hemoglobin 32.5 pg (28.0-34.0); Mean Corpuscular Volume 97.1 fL (81-99); Mean Platelet Volume 11.3 fL (7.4-10.4); Monocytes # 0.9 10^3/uL (0.2-0.9); Monocytes % 5.7 %; Neutrophils # 11.82 10^3/uL (1.8-7.7); Nucleated Red Blood Cells % 0 %; Platelet Count 240 10^3/cmm (130-400); Red Blood Count 4.86 10^6/uL (4.1-5.3); Red Cell Distribution Width 12.3 % (12.1-15.1); White Blood Count 15.2 10^3/uL (4.0-10.0)
[2020-12-05 02:23] LABS: Alanine Aminotransferase 15 U/L (0-33); Albumin Level 4.5 g/dL (3.5-5.2); Alkaline Phosphatase 72 IU/L (35-105); Anion Gap 17.7 (5-19); Aspartate Amino Transferase 17 U/L (0-32); Blood Urea Nitrogen 12 mg/dL (6-20); Calcium 8.8 mg/dL (8.5-10.5); Carbon Dioxide 21 mmol/L (22-29); Chloride 106 mmol/L (98-107); Globulin 2.9 g/dL (1.3-4.6); Glomerular Filtration Rate 102.8 mL/min (90-130); Glucose 106 mg/dL (65-115); Lipase 30 U/L (13-60); Osmolality Calculated 292 mOsm/kg (285-295); Potassium 3.7 mmol/L (3.5-5.1); Sodium 141 mmol/L (136-145); Total Bilirubin 0.4 mg/dL (0.15-1.2); Total Protein 7.4 g/dL (6.6-8.7)
[2020-12-05 02:41] LABS: HCG, Serum Qual Negative (Negative)
[2020-12-05] MEDS: iohexol 300 mg/mL 100 mL Btl IV (03:10)
[2020-12-05 03:52] VITALS: BP 142/72; PULSE 72; RESP 16; O2SAT 99
[2020-12-05 04:13] LABS: Add Urine Microscopic? YES; Bacteria Urine TRACE /hpf; Bilirubin Urine Neg (Negative); Blood Urine Neg (Negative); Glucose Urine UA Norm (Normal); Ketones Urine Negative (Negative); Leukocyte Esterase Urine Negative (Negative); Mucus Urine 1+ /hpf; Nitrate Urine Negative (Negative); Protein Urine 1+ (Negative); RBC Urine 0-4 /hpf (0-2); Specific Gravity, Urine 1.005 (1.005-1.030); Squamous Epithelial Cell Urine 0-4 /hpf (0-5); Urine Appearance Clear (CLEAR); Urine Color Yellow (Yellow); Urobilinogen Urine Norm (Negative); WBC Urine 0-4 /hpf (0-5); pH Urine 6.5 (5-7)
[2020-12-05 04:56] VITALS: BP 117/84; PULSE 95; RESP 18; O2SAT 99
--- NOTE | 2020-12-05 08:10 | PC.SOCIAL ---
Email sent to [facility] for referral by Dr Wei to Thee Armas: Brennen.
--- NOTE | 2021-01-04 06:46 | DCPLANNER ---
Patient had a follow up appointment scheduled for 12.22.[address] Kingston at general surgery - patient did attend appointment.
== END 2020-12-05 05:01 | disposition home or self-care (01) ==
PROVIDERS: Physician Assistant; Emergency Provider Emergency Medicine
DX: K52.9 Noninfective gastroenteritis and colitis, unspecified (principal); F17.210 Nicotine dependence, cigarettes, uncomplicated
CPT/HCPCS: 74177; 80053; 81001; 83690; 84703; 85025; 96361; 96374; 99284; J2765; J7030; Q9967

== ENCOUNTER 2021-01-16 07:32 | Outpatient (CLI) | payer SELFPAY ==
--- NOTE | 2021-01-16 08:00 | NM_ITS ---
WS: [id number] NUCLEAR MEDICINE HIDA SCAN CLINICAL INFORMATION: R10.11 - Right upper quadrant pain TECHNIQUE: Following intravenous administration of 4.0 mCi of technetium 99m mebrofenin, images of th e abdomen were obtained over the course of 60 minutes. Next, gallbladder ejection fraction was determ ined by obtaining preprandial and one-hour postprandial images of the gallbladder following oral ramez stion of Ensure. COMPARISON: None. FINDINGS: Normal hepatic uptake at 5 minutes. Gallbladder is visualized by 10 to 15 minutes. No evidence of acu te cholecystitis. Normal common bile duct and small bowel activity. No evidence of choledocholithiasi s. Gallbladder ejection fraction 91% within normal limits. No evidence of chronic cholecystitis. NM/NM hepatobiliary w phar* [id number] IMPRESSION: 1. No evidence of acute or chronic cholecystitis. 2. Normal gallbladder ejection fraction 91% within normal limits.
== END 2021-01-16 07:33 | disposition home or self-care (01) ==
LOC: NM 07:34
PROVIDERS: Visit Provider Surgery
DX: R10.11 Right upper quadrant pain (principal)
CPT/HCPCS: 78227; A9537

== ENCOUNTER 2021-07-17 10:31 | Emergency (ER) | payer BC, SELFPAY ==
[2021-07-17 10:59] VITALS: BP 122/87; PULSE 86; RESP 19; TEMP 36.9; O2SAT 97; BMI 32.0
[2021-07-17 12:27] LABS: Basophils % 0.5 %; Eosinophils # 0.1 10^3/uL (0.0-0.8); Eosinophils % 1.6 %; Hematocrit 42.4 % (37.0-47.0); Hemoglobin 14.2 g/dL (11.5-15.3); Lymphocytes # 2.4 10^3/uL (0.8-4.8); Lymphocytes % 29.2 %; Mean Corpuscular HGB Conc 33.5 g/dL (30.0-36.0); Mean Corpuscular Hemoglobin 32.9 pg (28.0-34.0); Mean Corpuscular Volume 98.4 fl (81-99); Mean Platelet Volume 10.7 fL (7.4-10.4); Monocytes # 0.5 10^3/uL (0.2-0.9); Monocytes % 6.4 %; Neutrophils # 5.04 10^3/uL (1.8-7.7); Neutrophils % 62.2 %; Nucleated Red Blood Cells % 0 %; Platelet Count 231 10^3/cmm (130-400); Red Blood Count 4.31 10^6/uL (4.1-5.3); Red Cell Distribution Width 12.6 % (12.1-15.1); White Blood Count 8.1 10^3/uL (4.0-10.0)
[2021-07-17 12:49] LABS: Alanine Aminotransferase 14 U/L (0-33); Albumin Level 4.5 g/dL (3.5-5.2); Alkaline Phosphatase 71 IU/L (35-105); Anion Gap 14.8 (5-19); Aspartate Amino Transferase 23 U/L (0-32); Blood Urea Nitrogen 8 mg/dL (6-20); Calcium 8.6 mg/dL (8.5-10.5); Carbon Dioxide 24 mmol/L (22-29); Chloride 103 mmol/L (98-107); Globulin 2.7 g/dL (1.3-4.6); Glomerular Filtration Rate 194.5 mL/min (90-130); Glucose 86 mg/dL (65-115); Lipase 22 U/L (13-60); Osmolality Calculated 284 mOsm/kg (285-295); Potassium 3.8 mmol/L (3.5-5.1); Sodium 138 mmol/L (136-145); Total Bilirubin 0.3 mg/dL (0.15-1.2); Total Protein 7.2 g/dL (6.6-8.7)
[2021-07-17 12:57] LABS: HCG, Serum Qual Negative (Negative)
--- NOTE | 2021-07-17 17:57 | CTR_ITS ---
PROCEDURE INFORMATION: Exam: CT Abdomen And Pelvis With Contrast Exam date and time: 07/17/2021 5:57 PM Age: 26 years old Clinical indication: Prior surgery; Surgery date: 6+ months; Surgery type: ; Patient HX: General abdominal pain x 2 days; Additional info: Abd pain TECHNIQUE: Imaging protocol: Computed tomography of the abdomen and pelvis with contrast. Radiation optimization: All CT scans at this facility use at least one of these dose optimization techniques: automated exposure control; mA and/or kV adjustment per patient size (includes targeted exams where dose is matched to clinical indication); or iterative reconstruction. Contrast material: OMNI 300; Contrast volume: 95 ml; Contrast route: INTRAVENOUS (IV); COMPARISON: CT abdomen pelvis w con* [id number] 12/05/2020 3:06 AM RADIATION DOSE METRICS: Total DLP (mGy-cm): 1550.52 FINDINGS: Liver: Normal. No mass. Gallbladder and bile ducts: Normal. No calcified stones. No ductal dilation. Pancreas: Normal. No ductal dilation. Spleen: Normal. No splenomegaly. Adrenal glands: Normal. No mass. Kidneys and ureters: Normal. No hydronephrosis. Stomach and bowel: Mild wall thickening is seen in several loops of small bowel in the lower abdomen. No intestinal obstruction. Appendix: Normal. Intraperitoneal space: Unremarkable. No free air. No significant fluid collection. Vasculature: Unremarkable. No abdominal aortic aneurysm. Lymph nodes: Unremarkable. No enlarged lymph nodes. Urinary bladder: Unremarkable as visualized. Reproductive: The uterus and ovaries appear normal. Bones/joints: Unremarkable. No acute fracture. Soft tissues: Unremarkable. CT/CT abdomen pelvis w con* [id number] IMPRESSION: Mild enteritis. No intestinal obstruction.
[2021-07-17] MEDS: iohexol 300 mg/mL 100 mL Btl IV (18:11)
[2021-07-17 18:30] VITALS: BP 120/80; PULSE 81; RESP 20; O2SAT 100
[2021-07-17 18:50] LABS: Add Urine Microscopic? NO; Charge for UA Resulting for Rev
[2021-07-17 18:57] LABS: Bilirubin Urine 1+ (Negative); Blood Urine Neg (Negative); Glucose Urine UA Norm (Normal); Ketones Urine Negative (Negative); Leukocyte Esterase Urine Negative (Negative); Nitrate Urine Negative (Negative); Protein Urine Neg (Negative); Urine Appearance Clear (CLEAR); Urine Color Yellow (Yellow); Urobilinogen Urine 1 mg/dL (Negative); pH Urine 6.5 (5-7)
--- NOTE | 2021-07-17 19:01 | W.ED.ABDPA2 ---
HPI - Abdominal Pain General: Chief Complaint: Abdominal Pain Stated Complaint: Abd pain Time Seen by Provider: 07/17/21 17:48 Source: patient Mode of arrival: ambulatory Limitations: no limitations History of Present Illness: 26-year-old female who is having abdominal pain since last night she spent some cramping lower abdominal pain suprapubic and right lower quadrant states her last menstruation was 1 week ago denies any vaginal discharge. States pain is currently a 5 out of 10. Denies any worsening improving pain. Denies any vomiting or diarrhea. Associated Symptoms: Denies chills, diarrhea, dysuria, fever(s), nausea and vomiting Related Data: Date of Last Menstrual Period: 07/10/21 Review of Systems Const: Denies: fever(s), chills, body aches or change in appetite Eyes: Denies: blurry vision or eye discomfort ENMT: Denies: throat pain or dental pain Card: Denies: chest pain Resp: Denies: dyspnea GI: Reports: abdominal pain; Denies: nausea, vomiting or diarrhea : Denies: dysuria Musc: Denies: neck pain or back pain Skin/Breast: Denies: rash Neuro: Denies: headache(s) Psych: Denies: depression Jose/Lymph: Denies: easy bruising All/Imm: Denies: urticaria PFSH ED PFSH: Medical History (Updated 07/17/21 @ 19:03 by Marcel Wei MD) section wound seroma, Social History Quit status (tobacco): not considering quitting Second hand smoke exposure: Yes Smoking risk assessment/counseling performed?: No Reason smoking risk assessment not done: other Female Reproductive History: Date of last menstrual period: 07/10/21 Physical Exam Const: COMMON NORMALS: no acute distress, patient oriented x3 and healthy appearing HENMT: COMMON NORMALS: normocephalic and atraumatic HEAD & SCALP: normocephalic and atraumatic Eye: COMMON NORMALS: Equal, round and reactive pupils present and EOMs intact bilaterally PUPIL: Yes Equal, round and reactive pupils present Neck/C-Spine: COMMON NORMALS: full ROM and supple Chest: COMMONS NORMALS: normal inspection of the chest and normal palpation of entire chest wall Resp: COMMON NORMALS: normal respiratory effort, No retractions, No use of accessory muscles and clear to auscultation bilaterally AUSCULTATION: clear to auscultation bilaterally Cardio: COMMON NORMALS: regular rate, regular rhythm and No murmurs present (Cardio) RATE: regular rate RHYTHM: regular rhythm GI: COMMON NORMALS: Normal to inspection, nondistended, normoactive bowel sounds present, Soft to palpation and no masses PALPATION: Yes Soft to palpation and Yes Tenderness to palpation present (GI) Details: RLQ Extremity: COMMON NORMALS: normal to inspection and full ROM Neuro: COMMON NORMALS: patient oriented x3, moves all extremities and no focal motor deficits Psych: COMMON NORMALS: mental status grossly normal, Normal thought process present and cooperative THOUGHT PROCESS: Normal thought process present Skin: COMMON NORMALS: no rashes or lesions noted and no wounds GENERAL SKIN EXAM: no rashes or lesions noted Course Vital Signs: Vital signs: Vital Signs Temperature 98.4 F 07/17/21 10:59 Pulse Rate 81 07/17/21 18:30 Respiratory Rate 20 H 07/17/21 18:30 Blood Pressure 120/80 07/17/21 18:30 Pulse Oximetry 100 07/17/21 18:30 MDM - Abdominal Pain Medical Decision Making Patient presents with abdominal pain exam here is benign CT and blood work is all normal spoke to her pains improved exam at discharge is benign she is stable for discharge she is to follow-up PCP and return if worsening. Lab Data : 07/17/21 12:18 07/17/21 12:18 Labs/Radiology: Radiology Impressions Abdomen/Pelvis CT 07/17/21 17:57 IMPRESSION: Mild enteritis. No intestinal obstruction. Laboratory Results WBC 8.1 10^3/uL (4.0-10.0) 07/17/21 12:18 RBC 4.31 10^6/uL (4.1-5.3) 07/17/21 12:18 Hgb 14.2 g/dL (11.5-15.3) 07/17/21 12:18 Hct 42.4 % (37.0-47.0) 07/17/21 12:18 MCV 98.4 fl (81-99) 07/17/21 12:18 MCH 32.9 pg (28.0-34.0) 07/17/21 12:18 MCHC 33.5 g/dL (30.0-36.0) 07/17/21 12:18 RDW 12.6 % (12.1-15.1) 07/17/21 12:18 Plt Count 231 10^3/cmm (130-400) 07/17/21 12:18 MPV 10.7 fL (7.4-10.4) H 07/17/21 12:18 Neut % (Auto) 62.2 % 07/17/21 12:18 Lymph % (Auto) 29.2 % 07/17/21 12:18 [place] % (Auto) 6.4 % 07/17/21 12:18 Eos % (Auto) 1.6 % 07/17/21 12:18 Baso % (Auto) 0.5 % 07/17/21 12:18 Neut # (Auto) 5.04 10^3/uL (1.8-7.7) 07/17/21 12:18 Lymph # (Auto) 2.4 10^3/uL (0.8-4.8) 07/17/21 12:18 [place] # (Auto) 0.5 10^3/uL (0.2-0.9) 07/17/21 12:18 Eos # (Auto) 0.1 10^3/uL (0.0-0.8) 07/17/21 12:18 Baso # (Auto) 0.0 10^3/uL (0.0-0.1) 07/17/21 12:18 Nucleated RBC % (auto) 0 % 07/17/21 12:18 Nucleated RBCs # 0.0 /100WBC 07/17/21 12:18 Sodium 138 mmol/L (136-145) 07/17/21 12:18 Potassium 3.8 mmol/L (3.5-5.1) 07/17/21 12:18 Chloride 103 mmol/L (98-107) 07/17/21 12:18 Carbon Dioxide 24 mmol/L (22-29) 07/17/21 12:18 Anion Gap 14.8 (5-19) 07/17/21 12:18 BUN 8 mg/dL (6-20) 07/17/21 12:18 Creatinine 0.4 mg/dL (0.5-0.9) L 07/17/21 12:18 GFR Calculation 194.5 mL/min (90-130) H 07/17/21 12:18 Glucose 86 mg/dL (65-115) 07/17/21 12:18 Calculated Osmolality 284 mOsm/kg (285-295) L 07/17/21 12:18 Calcium 8.6 mg/dL (8.5-10.5) 07/17/21 12:18 Total Bilirubin 0.3 mg/dL (0.15-1.2) 07/17/21 12:18 AST 23 U/L (0-32) 07/17/21 12:18 ALT 14 U/L (0-33) 07/17/21 12:18 Alkaline Phosphatase 71 IU/L (35-105) 07/17/21 12:18 Total Protein 7.2 g/dL (6.6-8.7) 07/17/21 12:18 Albumin 4.5 g/dL (3.5-5.2) 07/17/21 12:18 Globulin 2.7 g/dL (1.3-4.6) 07/17/21 12:18 Lipase 22 U/L (13-60) 07/17/21 12:18 HCG, Qual Negative (Negative) 07/17/21 12:18 Urine Color Yellow (Yellow) 07/17/21 18:40 Urine Appearance Clear (CLEAR) 07/17/21 18:40 Urine pH 6.5 (5-7) 07/17/21 18:40 Ur Specific [place] 1.010 (1.005-1.030) 07/17/21 18:40 Urine Protein Neg (Negative) 07/17/21 18:40 Urine Glucose (UA) Norm (Normal) 07/17/21 18:40 Urine Ketones Negative (Negative) 07/17/21 18:40 Urine Blood Neg (Negative) 07/17/21 18:40 Urine Nitrate Negative (Negative) 07/17/21 18:40 Urine Bilirubin 1+ (Negative) H 07/17/21 18:40 Urine Urobilinogen 1 mg/dL (Negative) H 07/17/21 18:40 Ur Leukocyte Esterase Negative (Negative) 07/17/21 18:40 Discharge Plan Discharge Patient Disposition: Home Clinical Impression: Abdominal pain Condition: Stable Discharge Orders: Discharge ED (Routine); Ordered 02/08/22 Ordered By: Marcel Wei Discharge Diet: Advance as tolerated Discharge Activity: Resume usual activity Patient Instructions: Abdominal Pain (ED) Coding Level of Care Code ED Director Of Recruitment And Admissions for Kinjal Fwd Exam Comprehensive
[2021-07-17 19:26] VITALS: PULSE 80; RESP 15; O2SAT 97
== END 2021-07-17 19:27 | disposition home or self-care (01) ==
PROVIDERS: Physician Assistant; Emergency Provider Emergency Medicine
DX: R10.9 Unspecified abdominal pain (principal); Z77.22 Contact with and (suspected) exposure to environmental tobacco smoke (acute) (chronic)
CPT/HCPCS: 74177; 80053; 81000; 81003; 83690; 84703; 85025; 99283; Q9967

== ENCOUNTER 2023-05-17 08:45 | Emergency (ER) | payer BC, SELFPAY ==
--- NOTE | 2023-05-17 09:01 | XRR_ITS ---
PROCEDURE INFORMATION: Exam: XR Chest Exam date and time: 05/17/2023 9:20 AM Age: 28 years old Clinical indication: Cough and dyspnea; Additional info: Dyspnea/cough TECHNIQUE: Imaging protocol: Radiologic exam of the chest. Views: 1 view. COMPARISON: CR XR chest 1V portable [id number] 04/12/2020 9:02 AM FINDINGS: Lungs: Unremarkable. No consolidation. Pleural spaces: Unremarkable. No pleural effusion. No pneumothorax. Heart/Mediastinum: Unremarkable. No cardiomegaly. Bones/joints: Unremarkable. XR/XR chest 1V portable [id number] IMPRESSION: No acute findings.
[2023-05-17 09:23] VITALS: BP 126/99; PULSE 106; RESP 20; TEMP 37.2; O2SAT 99; BMI 33.2
[2023-05-17 09:32] VITALS: BP 127/96; PULSE 84; RESP 18; O2SAT 98
--- NOTE | 2023-05-17 09:38 | ED_ITS ---
HPI - COVID General: Chief Complaint: Nausea/Vomiting/Diarrhea Stated Complaint: NVD,cough,at home test covid+ Time Seen by Provider: 05/17/23 09:00 Source: patient Mode of arrival: ambulatory Triage information: Has fever, cough or shortness of breath . Exposure to COVID + person last 14 days History of Present Illness: 28-year-old female presents to the [facility] room by private vehicle. 5 days ago she had onset of upper respiratory symptoms 3 days ago she tested positive with a home COVID test. She complaining of nausea vomiting chest congestion and cough generalized myalgias at home. She had an episode of nausea and vomiting this morning. MD complaint: known COVID positive Prior covid testing: yes, results known COVID 19 common symptoms: positive fever(s), chills, cough, non-productive cough, dyspnea, fatigue, body aches, nasal congestion, nausea, vomiting and diarrhea COVID 19 other sytmptoms: positive chest pain Onset (ago): day(s) (5) Severity: mild Treatment prior to arrival: none COVID Results: SARS-CoV-2 RNA (RT-PCR) Not detected (NOT DETECTED) 04/12/20 0 9:23 Review of Systems Const: Reports: fever(s), chills, body aches, fatigue and malaise ENMT: Reports: nasal congestion Card: Reports: chest pain; Denies: edema or swelling of feet/ankles Resp: Reports: dyspnea and non-productive cough GI: Reports: nausea, vomiting and diarrhea; Denies: abdominal pain : Denies: dysuria, urinary frequency or urinary urgency Musc: Denies: neck pain or back pain Skin/Breast: Denies: rash PFS ED PFSH: Medical History (Updated 05/17/23 @ 09:40 by Alfredo Parikh DO) section wound seroma, Social History Quit status (tobacco/nicotine): not considering quitting Second hand smoke exposure: Yes Physical Exam Const: COMMON NORMALS: no acute distress GENERAL APPEARANCE: cooperative and comfortable ORIENTATION/CONSCIOUSNESS: Yes awake, Yes oriented to person, Yes oriented to place and Yes oriented to time HENMT: COMMON NORMALS: normocephalic, atraumatic and hearing grossly normal bilaterally HEAD & SCALP: normocephalic and atraumatic Resp: COMMON NORMALS: normal respiratory effort, No retractions, No use of accessory muscles and clear to auscultation bilaterally AUSCULTATION: clear to auscultation bilaterally Cardio: COMMON NORMALS: regular rate, regular rhythm and No murmurs present (Cardio) RATE: regular rate RHYTHM: regular rhythm GI: COMMON NORMALS: Soft to palpation and No hepatosplenomegaly present AUSCULTATION: Yes normoactive bowel sounds PALPATION: Yes Soft to palpation, No Tenderness to palpation present (GI), No Guarding due to palpation present (GI) and Yes No hepatosplenomegaly present Extremity: COMMON NORMALS: normal to inspection, capillary refill normal, no clubbing, cyanosis or edema, no calf tenderness and no pedal edema Neuro: SENSORIUM/ORIENTATION: Yes oriented to person, Yes oriented to place and Yes oriented to time Skin: COMMON NORMALS: no rashes or lesions noted GENERAL SKIN EXAM: no rashes or lesions noted Course Vital Signs: Vital signs: Vital Signs Temperature 98.9 F 05/17/23 09:23 Pulse Rate 84 05/17/23 09:32 Respiratory Rate 18 05/17/23 09:32 Blood Pressure 127/96 05/17/23 09:32 Pulse Oximetry 98 05/17/23 09:32 Oxygen Delivery Me thod Room Air 05/17/23 09:32 MDM - COVID Medical Decision Making Oxygen sats normal exam unremarkable patient is not tachycardic or hypoxic. I think she is experiencing usual course of COVID at this point. Ondansetron disintegrating tablets to use for nausea clear liquid diet advance as tolerated. Unfortunately she is outside the window of efficacy for Paxlovid. Since she is not hypoxic she does not require any steroids. Differential Diagnosis Likely COVID 19 and pulmonary embolism Medical Records I reviewed the patient's medical records. Lab Data I reviewed the patient's lab results. SARS-CoV-2 RNA (RT-PCR) Not detected (NOT DETECTED) 04/12/20 0 9:23 All radiology interpretation(s) finalized by discharge Discharge Plan Discharge Patient Disposition: Home Clinical Impression: COVID-19 Condition: Stable Prescriptions: New ondansetron 4 mg tablet,disintegrating 4 mg PO Q6H PRN (Reason: nausea and vomiting) Qty: 20 0RF No Action sertraline 50 mg tablet 50 mg PO DAILY prazosin 2 mg capsule 2 mg PO .nightly medroxyprogesterone 150 mg/mL syringe 150 mg IM .every 3 months neomycin-polymyxin B-dexameth [Maxitrol] 3.5mg/mL-10,000 unit/mL-0.1 % drops,suspension 2 drp ophthalmic (eye) QID 7 Days Qty: 5 0RF Rx Instructions: Route-Ears to treat Otits Externa Discharge Orders: Discharge ED (Routine); Ordered 05/17/23 Ordered By: Alfredo Parikh Patient Instructions: COVID-19 (Coronavirus Disease 2019) (ED), Opioid Safety, Pain Management Activity Restrictions/Additional Instructions: Thank you for choosing [facility] for your healthcare needs today. Please realize this is an emergency room and that we are providing you with a medical screening exam and this may not be complete and all inclusive of all the testing and or work up that you may need to determine your ailment or severity of your illness. It is very important that you follow up as instructed or that you return to the Emergency Department should you have concerns or if your condition changes or worsens in any way. Coding Level of Care Code ED Bulk Sealer Operator for Kinjal Benton
[2023-05-17] MEDS: sodium chloride 0.9% 500 ML 999 ML IV (09:51)
[2023-05-17] MEDS: promethazine 25 mg/mL SDV 1 mL IM (09:51)
[2023-05-17 10:24] VITALS: PULSE 61; O2SAT 98
== END 2023-05-17 10:25 | disposition home or self-care (01) ==
PROVIDERS: Emergency Provider Family Medicine
DX: U07.1 COVID-19 (principal)
CPT/HCPCS: 71045; 96360; 96372; 99284; J2550; J7040

== ENCOUNTER 2023-07-31 07:59 | Outpatient (CLI) | payer BC, SELFPAY ==
--- NOTE | 2023-07-31 08:06 | US_ITS ---
WS: [id number] US pelv w/transvag [id number] HISTORY: PELVIC PAIN COMPARISON: None available. Uterus: 7.3 cm x 5.5 cm x 3.9 cm. Normal size anteverted uterus. No fibroid or mass. Endometrium: 0.6 cm. Normal. No increased vascularity or mass. Right ovary: 2.5 cm x 2.3 cm x 2.7 cm. Normal size and vascularity, no cystic or solid masses. Radha us small follicles within the ovary. Left ovary: 2.9 cm x 3.1 cm x 1.7 cm. Normal size and vascularity, no cystic or solid masses. No free fluid in the cul-de-sac. IMPRESSION: Unremarkable transabdominal and transvaginal pelvic ultrasounds. Normal endometrium.
== END 2023-07-31 08:00 | disposition home or self-care (01) ==
LOC: RAD 07:59
PROVIDERS: Visit Provider Family Medicine
DX: R10.2 Pelvic and perineal pain (principal)
CPT/HCPCS: 76830; 76856

== ENCOUNTER → 2024-01-29 08:36 | Outpatient (BNVA) | payer BC, SELFPAY | PROVIDERS: Visit Provider Nurse Practitioner | DX: J02.9 Acute pharyngitis, unspecified (principal) | CPT/HCPCS: 87880 ==

== ENCOUNTER → 2024-06-08 07:49 | Outpatient (BNVA) | payer BC, SELFPAY | PROVIDERS: Visit Provider Emergency Medicine | DX: J02.9 Acute pharyngitis, unspecified (principal) | CPT/HCPCS: 87071; 87880 ==

== ENCOUNTER 2024-06-10 23:07 | Emergency (ER) | payer BC, SELFPAY ==
[2024-06-10 23:11] VITALS: BP 128/77; PULSE 119; RESP 18; O2SAT 99; BMI 35.2
[2024-06-11 03:02] VITALS: BP 126/86; PULSE 88; O2SAT 100
--- NOTE | 2024-06-11 03:42 | XRR_ITS ---
PROCEDURE INFORMATION: Exam: XR Chest Exam date and time: 06/11/2024 4:20 AM Age: 29 years old Clinical indication: Shortness of breath TECHNIQUE: Imaging protocol: Radiologic exam of the chest. Views: 1 view. COMPARISON: CR XR chest 1V portable [id number] 05/17/2023 9:20 AM FINDINGS: Lungs: Unremarkable. No consolidation. Pleural spaces: Unremarkable. No pleural effusion. No pneumothorax. Heart/Mediastinum: Unremarkable. No cardiomegaly. Bones/joints: Unremarkable. XR/XR chest 1V portable [id number] IMPRESSION: No acute findings.
--- NOTE | 2024-06-11 03:46 | W.ED.SOB ---
HPI - SOB/Dyspnea General: Chief Complaint: Shortness of Breath/Dyspnea Stated Complaint: SOB Lung pressure Time Seen by Provider: 06/11/24 03:41 History of Present Illness: HPI Narrative: The patient presents to the ER with a chief complaint of worsening respiratory symptoms that began last week, shortly after Tamara. The patient initially experienced allergy-like symptoms, which progressively worsened over time. The patient visited urgent care on Friday, where a strep test was performed and came back negative. The patient's lungs were assessed, and wheezing was noted. The patient was prescribed an albuterol inhaler and steroids. The patient reported feeling better on Friday but experienced a relapse of symptoms, including shortness of breath and pressure that was not relieved by the albuterol inhaler. The patient describes the pressure as moving around, sometimes felt in the side, chest, and stomach. The patient has a history of COVID-19 infection but reports that the pressure experienced during that time was different from the current symptoms. Related Data Home Medications Medication Instructions Recorded Confirmed medroxyprogesterone 150 mg/mL 150 mg IM .every 3 months 01/01/23 06/08/24 intramuscular syringe fluoxetine 20 mg capsule 20 mg PO BID 06/08/24 06/08/24 hydroxyzine HCl 10 mg tablet 10 mg PO TID PRN 06/08/24 06/08/24 Previous Rx's Medication Instructions Recorded albuterol sulfate 90 mcg/actuation 2 puff inhalation Q6H PRN 06/08/24 aerosol inhaler shortness of breath or wheezing #8.5 grams zibcoffqyploybj-ljwymlkftenpwlj-OH 5 ml PO Q6H PRN cold symptoms #118 06/08/24 2 mg-30 mg-10 mg/5 mL oral syrup mL (Bromfed DM) dexamethasone 2 mg tablet 6 mg (3 x 2 mg) PO DAILY 5 days 06/08/24 #15 tabs doxycycline hyclate 100 mg tablet 100 mg PO BID 7 days #14 tabs 06/08/24 amoxicillin 875 mg tablet 875 mg PO BID #14 tabs 06/11/24 Allergies Allergy/AdvReac Type Severity Reaction Status Date / Time silver sulfadiazine Allergy Unknown Verified 06/10/24 23:18 REPLACED BY [facility] ED PFSH: Medical History (Updated 06/11/24 @ 04:39 by Grant Law, DO) section wound seroma, Social History Smoking and tobacco/nicotine status: current every day tobacco/nicotine user cigarettes Years cigarettes smoked: 10 Quit status (tobacco/nicotine): not considering quitting Second hand smoke exposure: Yes Physical Exam Const: COMMON NORMALS: no acute distress, patient oriented x3, healthy appearing, alert and well nourished HENMT: COMMON NORMALS: normocephalic HEAD & SCALP: normocephalic Eye: COMMON NORMALS: EOMs intact bilaterally Neck/C-Spine: COMMON NORMALS: full ROM and supple Resp: COMMON NORMALS: normal respiratory effort, No retractions and clear to auscultation bilaterally AUSCULTATION: clear to auscultation bilaterally Cardio: COMMON NORMALS: regular rate, regular rhythm, No gallops present (Cardio) and No murmurs present (Cardio) RATE: regular rate RHYTHM: regular rhythm GI: COMMON NORMALS: Soft to palpation and non-tender PALPATION: Yes Soft to palpation Extremity: GENERAL: Yes normal exam except as noted Neuro: COMMON NORMALS: patient oriented x3 SENSORIUM/ORIENTATION: Yes alert Skin: COMMON NORMALS: no rashes or lesions noted GENERAL SKIN EXAM: no rashes or lesions noted Course Vital Signs: Vital signs: Vital Signs Pulse Rate 81 06/11/24 05:22 Respiratory Rate 18 06/10/24 23:11 Blood Pressure 126/86 06/11/24 03:02 Pulse Oximetry 91 06/11/24 05:22 Oxygen Delivery Me thod Room Air 06/10/24 23:11 MDM - SOB/Dyspnea Medical Decision Making 29-year-old female presents the emergency department with worsening respiratory symptoms. Patient's chest x-ray is consistent with a right lower lobe pneumonia. She is already on Doxy. Likely her symptoms are not secondary to her pneumonia and that the x-ray is just lagging behind her symptoms. Her symptoms could still represent a viral pneumonia. Encouraged the patient to continue the dexamethasone and doxycycline until complete. Follow-up with her primary care physician in the next 1 to 2 weeks. Return precautions were discussed and the patient was discharged home in stable condition. Lab Data Labs/Radiology: Laboratory Results Coronavirus (PCR) Negative (Negative) 06/11/24 03:06 Influenza A (PCR) Negative (Negative) 06/11/24 03:06 Influenza Type B (PCR) Negative (Negative) 06/11/24 03:06 RSV (PCR) Negative (Negative) 06/11/24 03:06 XR interpretation done by ED provider, pending radiology final review ED provider radiology interpretation(s): Chest x-ray: Appears to be a right lower lobe infiltrate Discharge Plan Discharge Patient Disposition: Home Clinical Impression: Pneumonia Qualifiers: Pneumonia type: due to unspecified organism Laterality: right Lung location: upper lobe of lung Qualified Code(s): J18.9 - Pneumonia, unspecified organism Condition: Stable Prescriptions: New amoxicillin 875 mg tablet 875 mg PO BID Qty: 14 0RF No Action medroxyprogesterone 150 mg/mL syringe 150 mg IM .every 3 months fluoxetine 20 mg capsule 20 mg PO BID Rx Instructions: administer in the morning and at noon/midday hydroxyzine HCl 10 mg tablet 10 mg PO TID PRN albuterol sulfate 90 mcg/actuation HFA aerosol inhaler 2 puff inhalation Q6H PRN (Reason: shortness of breath or wheezing) Qty: 8.5 0RF zmvlqvhutwunphx-adxafodep-BX [Bromfed DM] 2-30-10 mg/5 mL syrup 5 ml PO Q6H PRN (Reason: cold symptoms) Qty: 118 0RF dexamethasone 2 mg tablet 6 mg PO DAILY 5 Days Qty: 15 0RF doxycycline hyclate 100 mg tablet 100 mg PO BID 7 Days Qty: 14 0RF Discharge Orders: Discharge ED (Routine); Ordered 06/11/24 Ordered By: Grant Law Discharge Diet: Advance as tolerated Discharge Activity: Increase activity as tolerated Patient Instructions: Opioid Safety, Pain Management Activity Restrictions/Additional Instructions: Please return to the emergency department any new or worsening symptoms. Please take all antibiotics until completely gone. Follow-up with your primary care physician for any persistent symptoms. Coding Level of Care Code ED Arch Cushion Skiving Machine Operator for Kinjal Benton
[2024-06-11 03:51] LABS: Covid PCR NEGATIVE (Negative); Influenza A NEGATIVE (Negative); Influenza B NEGATIVE (Negative); Respiratory Syncytial Virus Ce NEGATIVE (Negative)
[2024-06-11 05:00] VITALS: PULSE 81; O2SAT 91
[2024-06-11 05:22] VITALS: PULSE 81; O2SAT 91
== END 2024-06-11 05:23 | disposition home or self-care (01) ==
PROVIDERS: Emergency Provider General Practice
DX: J18.9 Pneumonia, unspecified organism (principal); Z11.52 Encounter for screening for COVID-19; F17.210 Nicotine dependence, cigarettes, uncomplicated
CPT/HCPCS: 71045; 87637; 99284

== ENCOUNTER → 2024-07-13 15:33 | Outpatient (BNVA) | payer BC, SELFPAY | PROVIDERS: Visit Provider Registered Nurse Neonatal Intensive Care | DX: M79.672 Pain in left foot (principal) | CPT/HCPCS: 73630 ==

== ENCOUNTER → 2024-07-22 15:37 | Outpatient (BNVA) | payer BC, SELFPAY | PROVIDERS: Visit Provider Registered Nurse Neonatal Intensive Care | DX: J02.9 Acute pharyngitis, unspecified (principal) | CPT/HCPCS: 87880 ==

== ENCOUNTER 2024-09-19 23:23 | Emergency (ER) | payer BC, SELFPAY ==
[2024-09-19 23:25] VITALS: BP 127/69; PULSE 102; RESP 16; TEMP 36.5; O2SAT 97; BMI 35.5
--- NOTE | 2024-09-19 23:48 | W.ED.EXTPRO ---
Documented by User: SEA Chambers 09/19/24 23:51 HPI - Extremity Problem General: Chief complaint: Extremity Injury, Upper Stated complaint: injured left hand, ring finger oozing Time Seen by Provider: 09/19/24 23:34 Source: patient Mode of arrival: ambulatory Limitations: no limitations History of Present Illness: Patient is a 29-year-old female presenting to the emergency department complaining of left ring finger pain. States that she had avulsion of the nail last week, as it has been growing out she has noticed that the tip of her finger has been getting more red and has started to note some oozing from it. Pain reported to be mild, no fever or other associated symptoms at this time. MD Complaint: extremity pain Onset (ago): day(s) Pain Consistency: constant Location: left and upper extremity (Ring finger) Radiation: none Associated symptoms: Deny chest pain, fever(s) or rash Context: other (Recent nail avulsion on the same finger) Related Data Home Medications ?Medication ?Instructions ?Recorded ?Confirmed medroxyprogesterone 150 mg/mL 150 mg IM .every 3 months 01/01/23 09/10/24 intramuscular syringe fluoxetine 20 mg capsule 20 mg PO BID 06/08/24 09/10/24 hydroxyzine HCl 10 mg tablet 10 mg PO TID PRN 06/08/24 09/10/24 Previous Rx's ?Medication ?Instructions ?Recorded albuterol sulfate 90 mcg/actuation 2 puff inhalation Q6H PRN 06/08/24 aerosol inhaler shortness of breath or wheezing #8.5 grams clindamycin HCl 300 mg capsule 300 mg PO BID 7 days #14 caps 09/19/24 Allergies Allergy/AdvReac Type Severity Reaction Status Date / Time silver sulfadiazine Allergy Unknown Verified 09/10/24 07:41 Review of Systems General: Reports: 10 or more systems reviewed and unremarkable except in HPI and below Const: Denies: fever(s) or chills Card: Denies: chest pain Resp: Denies: dyspnea GI: Denies: abdominal pain, nausea, vomiting or diarrhea Musc: Reports: extremity pain (Left ring finger) and extremity swelling (Left ring finger); Denies: joint pain Skin/Breast: Reports: erythema; Denies: rash, skin pain, skin tenderness or new lesions Neuro: Denies: headache(s) PFSH ED PFSH: Medical History Avulsion of nail of left ring finger section wound seroma, Social History Smoking and tobacco/nicotine status: current every day tobacco/nicotine user cigarettes Years cigarettes smoked: 10 Quit status (tobacco/nicotine): not considering quitting Second hand smoke exposure: Yes Physical Exam Const: COMMON NORMALS: no acute distress, average body habitus, patient oriented x3, no limitations, healthy appearing, alert and well nourished HENMT: COMMON NORMALS: normocephalic and atraumatic HEAD & SCALP: normocephalic and atraumatic Neck/C-Spine: COMMON NORMALS: full ROM, no lymphadenopathy, supple and no meningeal signs Resp: COMMON NORMALS: normal respiratory effort, No use of accessory muscles and clear to auscultation bilaterally AUSCULTATION: clear to auscultation bilaterally Cardio: COMMON NORMALS: regular rate and regular rhythm RATE: regular rate RHYTHM: regular rhythm Extremity: COMMON NORMALS: full ROM and capillary refill normal Neuro: COMMON NORMALS: patient oriented x3 SENSORIUM/ORIENTATION: Yes alert MENINGEAL SIGNS: Yes no meningeal signs Skin: COMMON NORMALS: no wounds and turgor normal NARRATIVE SKIN EXAM: Redness swelling to tuft of left ring finger. Evidence of previous avulsion of the nail. Mild clear oozing noted. No abscess or fluctuance. GENERAL SKIN EXAM: turgor normal Course Vital Signs: Vital signs: Vital Signs Temperature 97.7 F 09/19/24 23:25 Pulse Rate 99 09/20/24 00:05 Respiratory Rate 16 09/20/24 00:05 Blood Pressure 119/79 09/20/24 00:05 Pulse Oximetry 98 09/20/24 00:05 MDM - Extremity (Nontraumatic) Medical Decision Making With recent avulsion, there are clinical signs and symptoms of paronychia without abscess or need for drainage. Will treat with clindamycin and have her do warm water soaks and follow-up with regular doctor. No radiology studies performed this visit Discharge Plan Discharge Patient Disposition: Home Clinical Impression: Paronychia Condition: Stable Prescriptions: New clindamycin HCl 300 mg capsule 300 mg PO BID 7 Days Qty: 14 0RF No Action medroxyprogesterone 150 mg/mL syringe 150 mg IM .every 3 months fluoxetine 20 mg capsule 20 mg PO BID Rx Instructions: administer in the morning and at noon/midday hydroxyzine HCl 10 mg tablet 10 mg PO TID PRN albuterol sulfate 90 mcg/actuation HFA aerosol inhaler 2 puff inhalation Q6H PRN (Reason: shortness of breath or wheezing) Qty: 8.5 0RF Discharge Orders: Discharge ED (Routine); Ordered 09/19/24 Ordered By: Danial Hebert Patient Instructions: Paronychia (ED) Activity Restrictions/Additional Instructions: Clindamycin. Warm water soaks. See the attached patient instructions for further education. Follow-up with regular doctor. Print Language: Cameroonian Coding Level of Care Code ED Manhole Stripper for Chg Fwd Documented by User: Waqas Marcelo DO 09/20/24 01:24 HPI - Extremity Problem General: Chief complaint: Extremity Injury, Upper Stated complaint: injured left hand, ring finger oozing Time Seen by Provider: 09/19/24 23:34 Related Data Home Medications ?Medication ?Instructions ?Recorded ?Confirmed medroxyprogesterone 150 mg/mL 150 mg IM .every 3 months 01/01/23 09/10/24 intramuscular syringe fluoxetine 20 mg capsule 20 mg PO BID 06/08/24 09/10/24 hydroxyzine HCl 10 mg tablet 10 mg PO TID PRN 06/08/24 09/10/24 Previous Rx's ?Medication ?Instructions ?Recorded albuterol sulfate 90 mcg/actuation 2 puff inhalation Q6H PRN 06/08/24 aerosol inhaler shortness of breath or wheezing #8.5 grams clindamycin HCl 300 mg capsule 300 mg PO BID 7 days #14 caps 09/19/24 Allergies Allergy/AdvReac Type Severity Reaction Status Date / Time silver sulfadiazine Allergy Unknown Verified 09/10/24 07:41 PFSH ED PFSH: Medical History Avulsion of nail of left ring finger section wound seroma, Social History Smoking and tobacco/nicotine status: current every day tobacco/nicotine user cigarettes Years cigarettes smoked: 10 Quit status (tobacco/nicotine): not considering quitting Second hand smoke exposure: Yes Course Vital Signs: Vital signs: Vital Signs Temperature 97.7 F 09/19/24 23:25 Pulse Rate 99 09/20/24 00:05 Respiratory Rate 16 09/20/24 00:05 Blood Pressure 119/79 09/20/24 00:05 Pulse Oximetry 98 09/20/24 00:05 MDM - Extremity (Nontraumatic) Medical Decision Making With recent avulsion, there are clinical signs and symptoms of paronychia without abscess or need for drainage. Will treat with clindamycin and have her do warm water soaks and follow-up with regular doctor. This patient was originally seen by Mr. Emilee PA-C.? I agree with his history, evaluation, and treatment. Discharge Plan Discharge Patient Disposition: Home Clinical Impression: Paronychia Condition: Stable Prescriptions: New clindamycin HCl 300 mg capsule 300 mg PO BID 7 Days Qty: 14 0RF No Action medroxyprogesterone 150 mg/mL syringe 150 mg IM .every 3 months fluoxetine 20 mg capsule 20 mg PO BID Rx Instructions: administer in the morning and at noon/midday hydroxyzine HCl 10 mg tablet 10 mg PO TID PRN albuterol sulfate 90 mcg/actuation HFA aerosol inhaler 2 puff inhalation Q6H PRN (Reason: shortness of breath or wheezing) Qty: 8.5 0RF Discharge Orders: Discharge ED (Routine); Ordered 09/19/24 Ordered By: Danial Hebert Patient Instructions: Paronychia (ED) Activity Restrictions/Additional Instructions: Clindamycin. Warm water soaks. See the attached patient instructions for further education. Follow-up with regular doctor. Print Language: Cam[place]onian Coding Level of Care Code ED Manhole Stripper for Kinjal Benton
[2024-09-20] MEDS: clindamycin 150 mg Capsule 300 MG PO (00:01)
[2024-09-20 00:05] VITALS: BP 119/79; PULSE 99; RESP 16; O2SAT 98
== END 2024-09-20 00:05 | disposition home or self-care (01) ==
PROVIDERS: Emergency Provider Physician Assistant
DX: L03.012 Cellulitis of left finger (principal); F17.210 Nicotine dependence, cigarettes, uncomplicated
CPT/HCPCS: 99283; J9999

== ENCOUNTER → 2024-12-07 15:05 | Outpatient (BNVA) | payer BC, SELFPAY | DX: Z76.89 Persons encountering health services in other specified circumstances (principal) | CPT/HCPCS: 80053; 85025 ==